=== PATIENT | female | born 1975 | race Caucasian/White ===

== ENCOUNTER 2020-08-21 15:32 | Outpatient (CLI) | payer SELFPAY ==
--- NOTE | 2020-08-21 15:30 | CT_ITS ---
WS: [id number] CT TEMPORAL BONES TECHNIQUE: Contrast enhanced CT of the temporal bones with coronal and sagittal reformatted images. CLINICAL INFORMATION: Mastoid pain and chronic otitis media COMPARISON: None. DLP: All CT scans at [facility] use at least one of these dose optimization techniques: automat ed exposure control; mA and/or kV adjustment per patient size (includes targeted exams where dose is matched to clinical indication); or iterative reconstruction. FINDINGS: Paranasal sinuses are well aerated. Partial opacification of the right mastoid air cells. L eft mastoid air cells are well aerated. Minimal right to left nasal septal deviation with leftward di rected spur. RIGHT: Partial opacification right mastoid air cells. No evidence of bony sclerosis or osteomyelitis. No mark dence of subperiosteal abscess or fluid collection. Normal external auditory canal. Ossicles are nor mal in appearance. Middle ear is well aerated. Small amount of mucosal thickening in the epitympanum. Normal tegmen tympani. Semicircular canals and cochlea are normal in appearance. Prussak's space is normal. Normal inner ear structures. Normal vestibular aqueduct. Facial nerve recess is normal. LEFT: Mastoid air cells are well aerated. Normal external auditory canal. Ossicles are normal in appearance . Middle ear is well aerated. Normal tegmen tympani. Semicircular canals and cochlea are normal in ap pearance. Prussak's space is normal. Normal inner ear structures. Normal vestibular aqueduct. Facial nerve recess is normal. CT/CT temporal bones w con [id number] IMPRESSION: 1. Partial opacification right mastoid air cells. No evidence of bony sclerosi s or osteomyelitis. 2. Normal right external auditory canal and mastoid soft tissues. 3. Right middle ear is well aerated. A few secretions in the epitympanum. 4. Left mastoid air cells and left middle ear well aerated 5. Normal inner ear structures bilaterally.
[2020-08-21] MEDS: iohexol 300 mg/mL 100 mL Btl IV (15:53)
== END 2020-08-21 15:33 | disposition home or self-care (01) ==
LOC: RADWPI 15:35
PROVIDERS: Visit Provider Otolaryngology
DX: H66.91 Otitis media, unspecified, right ear (principal)
CPT/HCPCS: 70481; Q9967